=== PATIENT | male | born 1970 | race Caucasian/White ===

== ENCOUNTER 2018-03-27 17:06 | Emergency (ER) | payer SELFPAY ==
--- NOTE | 2018-03-31 16:14 | NUR ---
Pt was not properly departed from [facility] on 03/27/18.
== END 2018-03-27 17:20 | disposition left against medical advice (07) ==
LOC: ER 17:08
DX: Z53.21 Procedure and treatment not carried out due to patient leaving prior to being seen by health care provider (principal)